=== PATIENT | female | born 1970 | race Caucasian/White ===

== ENCOUNTER 2017-05-26 07:19 | Emergency (ER) | payer BC, OTHER ==
[2017-05-26 07:43] VITALS: BP 133/91
--- NOTE | 2017-05-26 08:08 | UC ---
Abdominal Pain Female HPI - HPI Summary HPI Summary: Some periumbilical abd discomfort which is intermittent. Mainly she is concerned about the 12 days of diarrhea. Watery stools many times a day. She has well water with a filter. She denies fever. Some black stool today but she has pepto bismol last night. No prior medical problems and no prior surgeries. No travel, hospitals, antibiotics. - History of Current Complaint Chief Complaint: UCGI Stated Complaint: STOMACH ACHE Time Seen by Provider: 05/26/17 07:52 Hx Obtained From: Patient Hx Last Menstrual Period: ~05/11/17 Onset/Duration: Gradual Onset, Lasting Days Timing: Constant Severity Initially: Moderate Severity Currently: Moderate Pain Intensity: 3 Location: Diffuse Radiates: No Character: Aching, Colicy, Cramping Aggravating Factor(s): Food Alleviating Factor(s): Nothing Associated Signs and Symptoms: Positive: Diarrhea. Negative: Diaphoresis, Fever , Cough, Dizzy, Back Pain, Constipation, Urinary Symptoms, Nausea, Vomiting Allergies/Adverse Reactions: Allergies Allergy/AdvReac Type Severity Reaction Status Date / Time No Known Allergies Allergy Verified 05/26/17 07:36 Home Medications: Home Medications [place]-3 Fatty Acids [Fish Oil 1200 mg] 1 cap PO DAILY 05/26/17 [History Confirmed 05/26/17] Probiotic Product [Probiotic] 1 tab PO DAILY 05/26/17 [History Confirmed ] Vitamin THERAPEUTIC TAB* [Theragran TAB*] 1 tab PO DAILY 05/26/17 [History Confirmed 05/26/17] PMH/Surg Hx/FS Hx/Imm Hx Previously Healthy: Yes - Surgical History Surgical History: Yes Surgery Procedure, Year, and Place: Tonsillectomy, ~ [place] - Family History Known Family History: Positive: Other - No diarrhea related family history. - Social History Lives: With Family Alcohol Use: None Substance Use Type: None Smoking Status (MU): Never Smoked Tobacco Review of Systems Gastrointestinal: Diarrhea All Other Systems Reviewed And Are Negative: Yes Physical Exam Triage Information Reviewed: Yes Appearance: Well-Appearing, No Pain Distress, Well-Nourished Vital Signs: Initial Vital Signs Temp 98.6 F 05/26/17 07:35 Pulse 88 05/26/17 07:35 Resp 16 05/26/17 07:35 BP 133/91 05/26/17 07:35 Pulse Ox 99 05/26/17 07:35 Vital Signs Reviewed: Yes Eye Exam: Normal Eyes: Positive: Conjunctiva Clear ENT: Positive: Pharynx normal. Negative: Pharyngeal erythema Neck: Positive: Supple, Nontender, No Lymphadenopathy Respiratory: Positive: Lungs clear, Normal breath sounds, No respiratory distress, No accessory muscle use. Negative: Respiratory distress, Decreased breath sounds, Accessory muscle use, Crackles, Rhonchi, Stridor, Wheezing Cardiovascular: Positive: No Murmur, Pulses Normal, Brisk Capillary Refill Abdomen Description: Positive: Nontender, No Organomegaly, Soft. Negative: CVA Tenderness (R), CVA Tenderness (L), Distended, Guarding Musculoskeletal: Positive: Strength Intact, ROM Intact, No Edema Neurological: Positive: Alert, Muscle Tone Normal Psychological: Positive: Age Appropriate Behavior Skin: Negative: rashes Abd Pain Female Course/Dx - Course Course Of Treatment: Diarrhea without any other worrisome symptoms. Stool will be obtained for further workup. She is completely comfortable now. we discussed supportive care. - Differential Dx/Diagnosis Provider Diagnoses: diarrhea. Discharge - Discharge Plan Condition: Good Disposition: HOME Prescriptions: Dicyclomine HCl [Bentyl] 10 mg PO TID PRN #20 cap PRN Reason: Pain Diphenoxylat/Atrop 2.5-0.025M* [Lomotil TAB*] 1 tab PO QID PRN #30 tab MDD 4 PRN Reason: Diarrhea Patient Education Materials: Acute Diarrhea (ED) Referrals: Jessenia Quiroga [Primary Care Provider] -
== END 2017-05-26 08:22 | disposition home or self-care (01) ==
LOC: UCCORT 07:19
DX: R19.7 Diarrhea, unspecified (principal); R10.33 Periumbilical pain
CPT/HCPCS: 99212; G0463

== ENCOUNTER 2018-06-07 07:07 | Emergency (ER) | payer BC, OTHER ==
[2018-06-07 07:20] VITALS: BP 141/84
--- NOTE | 2018-06-07 07:31 | UC ---
Respiratory Complaint HPI - HPI Summary HPI Summary: cough x 10 days cough is dry , harsh , worse at night, no fever, no chills, no wheezing, no sob had cold symptoms with runny nose, pnd for the past 10 days cold sx has been better for the past 3 days - History of Current Complaint Chief Complaint: UCGeneralIllness Stated Complaint: COUGH Time Seen by Provider: 06/07/18 07:13 Hx Obtained From: Patient Hx Last Menstrual Period: 05/07/18 ?: No Onset/Duration: Gradual Onset, Lasting Days - 10, Still Present Timing: Constant Severity Initially: Moderate Severity Currently: Moderate Pain Intensity: 0 Character: Cough: Nonproductive Aggravating Factors: Exertion, Deep Breaths Alleviating Factors: Nothing Associated Signs And Symptoms: Positive: URI, Nasal Congestion. Negative: Dyspnea, Fever, Chills, Pleuritic Chest Pain, Wheezing, Hemoptysis, Dizziness, Calf Pain, Calf Swelling, Edema, Hoarseness, Sinus Discomfort - Allergies/Home Medications Allergies/Adverse Reactions: Allergies Allergy/AdvReac Type Severity Reaction Status Date / Time No Known Allergies Allergy Verified 06/07/18 07:15 Home Medications: Home Medications Multivitamins/Minerals TAB* [Theragran/minerals TAB*] 1 tab PO DAILY 06/07/18 [ History Confirmed 06/07/18] guaiFENesin LIQ* [Robitussin*] 1 dose PO Q4H PRN 06/07/18 [History Confirmed 04/13] PMH/Surg Hx/FS Hx/Imm Hx Previously Healthy: Yes - Surgical History Surgical History: Yes Surgery Procedure, Year, and Place: [facility] - Family History Known Family History: Positive: Other - No diarrhea related family history. Negative: Diabetes - Social History Alcohol Use: None Substance Use Type: None Smoking Status (MU): Never Smoked Tobacco Review of Systems All Other Systems Reviewed And Are Negative: Yes Constitutional: Positive: Negative Skin: Positive: Negative Eyes: Positive: Negative ENT: Positive: Nasal Discharge, Sinus Congestion Respiratory: Positive: Cough Cardiovascular: Positive: Negative Is Patient Immunocompromised?: No Physical Exam Triage Information Reviewed: Yes Appearance: Well-Appearing, No Pain Distress, Well-Nourished Vital Signs: Initial Vital Signs Temp 97.3 F 06/07/18 07:16 Pulse 80 06/07/18 07:16 Resp 15 06/07/18 07:16 BP 141/84 06/07/18 07:16 Pulse Ox 98 06/07/18 07:16 Vital Signs Reviewed: Yes Eye Exam: Normal Eyes: Positive: Conjunctiva Clear ENT: Positive: Normal ENT inspection, Hearing grossly normal, Pharynx normal, Nasal congestion, TMs normal. Negative: Nasal drainage Neck: Positive: Supple, Nontender, No Lymphadenopathy Respiratory: Positive: Chest non-tender, Lungs clear, Normal breath sounds, No respiratory distress Cardiovascular: Positive: RRR, No Murmur, Pulses Normal Skin Exam: Normal UC Diagnostic Evaluation - Laboratory O2 Sat by Pulse Oximetry: 98 Respiratory Course/Dx - Differential Dx/Diagnosis Provider Diagnosis: Viral bronchitis Discharge - Sign-Out/Discharge Documenting (check all that apply): Patient Departure All imaging exams completed and their final reports reviewed: No Studies - Discharge Plan Condition: Stable Disposition: HOME Prescriptions: Codeine Phosphate/Guaifenesin [Cheratussin AC] 10 ml PO Q8H #120 ml MDD 30 ml Patient Education Materials: Acute Bronchitis (ED) Referrals: Jessenia Quiroga [Primary Care Provider] - If Needed - Billing Disposition and Condition Condition: STABLE Disposition: Home
== END 2018-06-07 07:33 | disposition home or self-care (01) ==
LOC: UCCORT 07:07
DX: J40 Bronchitis, not specified as acute or chronic (principal); B97.89 Other viral agents as the cause of diseases classified elsewhere
CPT/HCPCS: 99212; G0463

== ENCOUNTER 2018-07-04 17:44 | Emergency (ER) | payer OTHER ==
[2018-07-04 19:49] VITALS: BP 151/91
--- NOTE | 2018-07-04 20:06 | UC ---
Throat Pain/Nasal Brown HPI - HPI Summary HPI Summary: Patient had cold symptoms in May and flulike symptoms which lasted approximately 2-1/2-3 weeks. She states over the past weekend she didn't have any nasal congestion but she did develop a headache which was worse on Wednesday. It has improved since then. - History of Current Complaint Chief Complaint: UCRespiratory Stated Complaint: HEADACHE, EAR PAIN Time Seen by Provider: 07/04/18 19:52 Hx Obtained From: Patient Hx Last Menstrual Period: 06/15/18 Onset/Duration: Gradual Onset Severity: Mild Pain Intensity: 7 Cough: None Associated Signs & Symptoms: Positive: Sinus Discomfort - Epiglottits Risk Factors Epiglottis Risk Factors: Negative - Allergies/Home Medications Allergies/Adverse Reactions: Allergies Allergy/AdvReac Type Severity Reaction Status Date / Time No Known Allergies Allergy Verified 07/04/18 19:40 PMH/Surg Hx/FS Hx/Imm Hx Previously Healthy: Yes - flulike symptoms in May lasting approximately 2-1 /2 weeks - Surgical History Surgical History: Yes Surgery Procedure, Year, and Place: Tonsillectomy, ~1974, [place] - Family History Known Family History: Positive: Other - No diarrhea related family history. Negative: Diabetes - Social History Alcohol Use: None Substance Use Type: None Smoking Status (MU): Never Smoked Tobacco Review of Systems All Other Systems Reviewed And Are Negative: Yes Constitutional: Positive: Negative Skin: Positive: Negative Eyes: Positive: Negative ENT: Positive: Sinus Pain/Tenderness Respiratory: Positive: Negative Cardiovascular: Positive: Negative Gastrointestinal: Positive: Negative Genitourinary: Positive: Negative Motor: Positive: Negative Neurovascular: Positive: Negative Musculoskeletal: Positive: Negative Neurological: Positive: Headache - Headache was worse on Wednesday night and she took Motrin with moderately relief. She states her headache is much better this evening. Psychological: Positive: Negative Is Patient Immunocompromised?: No Physical Exam Triage Information Reviewed: Yes Appearance: Well-Appearing, No Pain Distress, Well-Nourished Vital Signs: Initial Vital Signs Temp 98.3 F 07/04/18 19:41 Pulse 77 07/04/18 19:41 Resp 16 07/04/18 19:41 BP 151/91 07/04/18 19:41 Pulse Ox 100 07/04/18 19:41 Vital Signs Reviewed: Yes Eye Exam: Normal - PERRLA, EOMI ENT Exam: Normal ENT: Positive: Normal ENT inspection, Sinus tenderness - Mild tenderness over the maxillary sinuses Neck exam: Normal Respiratory Exam: Normal Cardiovascular Exam: Normal Musculoskeletal Exam: Normal Neurological Exam: Normal Neurological: Positive: Alert, Muscle Tone Normal - Cranial nerves II through XII are intact, good arm and leg strength against resistance Psychological Exam: Normal Skin Exam: Normal Throat Pain/Nasal Course/Dx - Course Course Of Treatment: Patient has been comfortable here. She is willing to try alternating Tylenol every 4 hours and Motrin every 6 or 8 hours. She is to increase her ibuprofen to 600 mg. She is willing to try Flonase 2 sprays in each nostril once a day over the next few days. If she has no improvement she is to follow up with her primary care provider. - Differential Dx/Diagnosis Provider Diagnosis: Allergic rhinitis Discharge - Sign-Out/Discharge Documenting (check all that apply): Patient Departure All imaging exams completed and their final reports reviewed: No Studies - Discharge Plan Condition: Fair Disposition: HOME Prescriptions: Fluticasone NASAL SPRAY 50MCG* [Flonase NASAL SPRAY 50MCG*] 2 spray BOTH NARES DAILY 7 Days #1 btl Patient Education Materials: Rhinosinusitis (DC) Referrals: Jessenia Quiroga [Primary Care Provider] - Additional Instructions: Take 2 Tylenol every 4 hours and alternate with ibuprofen 600 mg with food every 6-8 hours for headache. Use the Flonase nasal spray 2 sprays in each nostril once a day for one week and then may decrease to 1 spray in each nostril once a day. If you have no change in the next 2 or 3 days deathly follow up with her primary care provider. If the headache worsens or you have any weakness, difficulty walking or speaking, any numbness or tingling in the extremities, you are to go to the emergency room for further treatment. - Billing Disposition and Condition Condition: FAIR Disposition: Home - Attestation Statements Provider Attestation: Per institutional requirements, I have reviewed the chart, however, I was not consulted specifically or made aware of this patient by the midlevel provider. I did not personally evaluate, interact with , or disposition this patient.
== END 2018-07-04 20:11 | disposition home or self-care (01) ==
LOC: UCCORT 17:44
DX: J30.9 Allergic rhinitis, unspecified (principal); R51 Headache
CPT/HCPCS: 99212; G0463